=== PATIENT | female | born 1990 | race Caucasian/White ===

== ENCOUNTER → 2022-07-26 11:56 | Outpatient (CLI) | payer OTHER, MEDICAID, SELFPAY ==
--- NOTE | 2022-07-26 12:02 | DI.RAD.S_ITS ---
PROCEDURE: XR CERVICAL SPINE 2V OR 3V INDICATIONS: rt side extremity numbness and weakness TECHNIQUE: 3 view(s) of the cervical spine were acquired. COMPARISON: None. FINDINGS: Bones: No fractures or dislocations to the T1 level. The lateral masses of C1 appear intact on the odontoid view. No suspicious bony lesions. There is straightening of the normal cervical lordosis Soft tissues: No prevertebral soft tissue swelling. IMPRESSION: Straightening the normal cervical lordosis may be related to positioning or muscle spasm Approved by: Piero Elizondo M.D. on 07/26/2022 at 14:02
--- NOTE | 2022-07-26 12:02 | DI.RAD.S_ITS ---
PROCEDURE: XR LUMBAR SPINE 2-3V INDICATIONS: rt side extremity numbness and weakness TECHNIQUE: 3 views of the lumbar spine were acquired. COMPARISON: None. FINDINGS: Bones: 5 [id number] vertebrae are present. There is normal bony alignment. No vertebral body compression fractures. No suspicious bony lesions. Mild convex right thoracolumbar scoliosis noted. Soft tissues: Overlying bowel gas pattern is normal. No suspicious soft tissue calcifications. Moderate fecal debris in the right colon IMPRESSION: Mild thoracolumbar dextroscoliosis Approved by: Piero Elizondo M.D. on 07/26/2022 at 14:01
== END ==
PROVIDERS: PCP Internal Medicine Gastroenterology; Referring Provider Internal Medicine Gastroenterology; Visit Provider Internal Medicine Gastroenterology
DX: M54.16 Radiculopathy, lumbar region (principal); M41.9 Scoliosis, unspecified; M54.12 Radiculopathy, cervical region; M54.50 Low back pain, unspecified
CPT/HCPCS: 72040; 72100